=== PATIENT | female | born 1955 | race Caucasian/White ===

== ENCOUNTER → 2016-12-09 | Outpatient (CLI) | payer BC ==
[~2016-12-09] MED LIST: CARAFATE DPS1 GM PO; DULERA 100 MCG/13 GM IH; HIZENTRA10 GM/50 M SQ; LOSARTAN-HCTZ1 EAC2 PO; MONTELUKAST SOD10 MG PO; PRESERVISION A1 EAC2 PO; PROTONIX40 MG PO; SYNTHROID200 MCG PO; VITAMIN B-125000 MC1 PO; WELLBUTRIN XL300 MG PO; ZOCOR DPS40 MG PO; ZOLOFT DPS100 MG PO; ZYRTEC DPS10 MG PO
== END | disposition home or self-care (01) ==
LOC: RAD.S 15:21
DX: Z12.31 Encounter for screening mammogram for malignant neoplasm of breast (principal)